=== PATIENT | male | born 1940 | race Caucasian/White ===

== ENCOUNTER 2020-02-26 09:21 | Emergency (ER) | payer MEDICARE, OTHER ==
[~2020-02-26] VITALS: Ht 175.3 cm; Wt 64.7 kg
[~2020-02-26 09:21] MED LIST: ACYC-113 PO; ASPI-650 PO; ERYT1OIN5 EACHEYE; LOSA50TA2 PO; POLY17PO5 PO; TRIF7.5D4 OP
[2020-02-26 09:25] VITALS: BP 184/156
--- NOTE | 2020-02-26 09:55 | NUR ---
EDMD LAW AT BEDSIDE, PT ABRASIVE IN NATURE, RUSHING STAFF YET REFUSING INTERVENTIONS OR QUESTIONING, STATING "I NEED TO LEAVE SOON". POC EXPLAINED BY MD LAW, PT STATING HE DOES NOT WANT FOLLOW UP OR PRESCRIPTION MEDICATIONS. PT CONTINUES TO INTERRUPT MD DURING MD ASSESSMENT AND EDUCATION.
--- NOTE | 2020-02-26 10:23 | NUR ---
late entry for 1023: pt given dc instructions and script. pt refusing to answer RN questions to complete clinical screen. pt refusing repeat bp. per skid machine operator, pt had refused to keep arm still for BP measurement in triage. pt yelling at staff to discharge him because he is in a hurry. pt ambulatory to dc desk with steady gait.
== END 2020-02-26 10:23 | disposition home or self-care (01) ==
LOC: ED 10:13
DX: L30.9 Dermatitis, unspecified (principal)
CPT/HCPCS: 99283

== ENCOUNTER 2020-03-09 21:41 | Emergency (ER) | payer MEDICARE ==
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
== END 2020-03-09 21:54 | disposition left against medical advice (07) ==
LOC: ED 21:45
DX: M54.9 Dorsalgia, unspecified (principal); Z53.21 Procedure and treatment not carried out due to patient leaving prior to being seen by health care provider

== ENCOUNTER 2020-03-12 15:45 | Emergency (ER) | payer MEDICARE ==
[~2020-03-12] VITALS: Ht 175.3 cm; Wt 90.9 kg
[2020-03-12 16:58] LABS: BASOPHILS % (AUTO) 0 % (0-1); EOSINOPHILS % (AUTO) 1 % (1-7); LYMPHOCYTES % (AUTO) 8 % (22-44); MEAN CORPUSCULAR HEMOGLOBIN 33.2 pg (27.5-34.5); MEAN CORPUSCULAR HGB CONC 33.6 g/dL (33.2-36.2); MEAN PLATELET VOLUME 8.1 fL (7.4-10.4); MONOCYTES % (AUTO) 10 % (2-9); NEUTROPHILS % (AUTO) 80 % (42-75); PLATELET COUNT 223 x10^3/uL (130-400); RED BLOOD COUNT 4.41 x10^6/uL (4.38-5.82)
[2020-03-12 16:59] LABS: MD NO
[2020-03-12 17:07] LABS: ALANINE AMINOTRANSFERASE 41 U/L (12-78); ALBUMIN 3.1 g/dL (3.4-5.0); ANION GAP 7 mmol/L (5-15); CALCIUM 8.9 mg/dL (8.5-10.1); CHLORIDE 102 mmol/L (98-107); CREATININE 1.01 mg/dL (0.7-1.3)
[2020-03-12 17:10] LABS: ALKALINE PHOSPHATASE 91 U/L (45-117); BILIRUBIN,TOTAL 1.3 mg/dL (0.2-1.0); TOTAL PROTEIN 6.8 g/dL (6.4-8.2)
[2020-03-12] MEDS ORDERED: IBUPROFEN 200 MG TABLET PO ONE (17:30)
[2020-03-12] MEDS ORDERED: IBUPROFEN 600 MG TABLET ONE (18:03)
--- NOTE | 2020-03-12 18:04 | NUR ---
ATTEMPTED TO GET PT TO WHEELCHAIR TO OFFER PT SHOWER PRIOR TO DC. TECH UNABLE TO GET PT INTO CHAIR. PT NOW C/O BACK PAIN. SCOTTY UPDATED. ORDERS RECIEVED FOR XR. Addendum: 03/12/20 at 1818 by AMCCHOLOB PT STATES HE CANNOT WALK, SCOTTY UPDATED. PT TELLS THIS RN HE WAS WALKING AROUND EARLIER TODAY, BUT CANNOT WALK NOW
--- NOTE | 2020-03-12 18:31 | NUR ---
PLAN FOR DX BACK AND UA AND PROCEED WITH DC IF NORMAL. PT HERE THREE DAYS AGO REQUIRING SECURITY TO ESCORT PT OUT PER ERMD.
--- NOTE | 2020-03-12 18:50 | NUR ---
assumed care of pt. report from Cally GLYNN. pt here for non-specific c/o via [facility]. pt is resting in position of comfort and has been uncooperative with assesment and questioning. awaiting test results
[2020-03-12 19:04] LABS: MICROSCOPIC INDICATED
--- NOTE | 2020-03-12 19:05 | NUR ---
attempted to enter room to D/c pt. pt is uncooperative with D/C. pt will not get dressed or get out of bed. pt is in no resp. distress. pt MANDY. security notified
[2020-03-12 19:15] VITALS: BP 149/60
== END 2020-03-12 19:20 | disposition home or self-care (01) ==
LOC: ED 16:10
DX: G89.29 Other chronic pain (principal); M19.072 Primary osteoarthritis, left ankle and foot; M19.042 Primary osteoarthritis, left hand; Z72.9 Problem related to lifestyle, unspecified; W18.39XA Other fall on same level, initial encounter; Y93.89 Activity, other specified; Y92.488 Other paved roadways as the place of occurrence of the external cause; Y99.8 Other external cause status
CPT/HCPCS: 36415; 72110; 80053; 81001; 85025; 87086; 99284

== ENCOUNTER 2020-03-16 03:52 | Emergency (ER) | payer MEDICARE ==
[~2020-03-16] VITALS: Ht 175.3 cm; Wt 92.5 kg
--- NOTE | 2020-03-16 04:10 | NUR ---
warm blanket provided, patient start snoring during triage.
--- NOTE | 2020-03-16 04:10 | NUR ---
BROUGHT IN BY THADDEUS PICKED UP NEXT TO MOVIE THEATER @ [facility]. PER REPORT ALTERED MENTAL STATUS. PATIENT A & O X 3 UPON ARRIVAL TO ED. NO TRAUMA. FS- 100
--- NOTE | 2020-03-16 04:42 | NUR ---
PA at bedside.
--- NOTE | 2020-03-16 06:11 | NUR ---
patient discharged with instruction. not willing to cooperate and wanting to stay more time to sleep. security at bedside.
[2020-03-16 06:13] VITALS: BP 163/84
== END 2020-03-16 06:16 | disposition home or self-care (01) ==
LOC: ED 05:00
DX: I48.0 Paroxysmal atrial fibrillation (principal); R41.82 Altered mental status, unspecified; I45.10 Unspecified right bundle-branch block; I25.10 Atherosclerotic heart disease of native coronary artery without angina pectoris; I10 Essential (primary) hypertension
CPT/HCPCS: 93005; 99283

== ENCOUNTER 2020-03-23 15:36 | Emergency (ER) | payer MEDICARE ==
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
--- NOTE | 2020-03-23 15:55 | NUR ---
SW paged per edmd verbal order at this time.
--- NOTE | 2020-03-23 15:59 | NUR ---
SW at bedside at this time.
[2020-03-23 16:35] VITALS: BP 152/89
== END 2020-03-23 16:38 | disposition home or self-care (01) ==
LOC: ED 16:33
DX: F29 Unspecified psychosis not due to a substance or known physiological condition (principal); Z72.9 Problem related to lifestyle, unspecified; R00.0 Tachycardia, unspecified; I10 Essential (primary) hypertension; I25.10 Atherosclerotic heart disease of native coronary artery without angina pectoris; I48.91 Unspecified atrial fibrillation
CPT/HCPCS: 93005; 99285

== ENCOUNTER 2020-03-24 14:01 | Observation (INO) | payer MEDICARE ==
[~2020-03-24] VITALS: Ht 177.8 cm; Wt 89.7 kg
--- NOTE | 2020-03-24 14:32 | NUR ---
INITIAL PT CONTACT. PT IN ED FOR CHRONIC SCIATICA PAIN. PT REQUESTS MEDICATION FOR THIS PAIN. PT SEEN HERE LAST NIGHT FOR SAME. D/C TO [facility]EN INTERMEDIATE. RETURNED TO ED FOR PERSISTENT SCIATICA PAIN. PT HARD OF HEARING BUT COOPERATIVE. PT STATES "I WANT A CANE OR A WALKER". PT UPRIGHT ON GURNEY POSITIONED FOR COMFORT, CALL LIGHT WITHIN REACH. FALL PRECAUTIONS IN PLACE.
[2020-03-24] MEDS ORDERED: KETOROLAC 60 MG/2 ML ONE (14:36)
[2020-03-24] MEDS ORDERED: KETOROLAC 30 MG/1 ML ONE (14:42)
[2020-03-24] MEDS ORDERED: KETOROLAC 30 MG/1 ML IM ONE (15:00)
--- NOTE | 2020-03-24 15:03 | NUR ---
PT. WAS WHEELED BACK FROM TRIAGE BY TECH, WHEN ARRIVED TO ROOM PT. WAS ABLE TO STAND AND WALK TO [facility].
--- NOTE | 2020-03-24 15:45 | NUR ---
AMBULATION WITH PT. PT SAT UP IN BED WITH ONE PERSON ASSIST. PIVOTED WITH CANE WITH ONE PERSON ASSIST, HOWEVER WAS UNSTEADY. FROM SEATED TO STANDING POSITION, ONE PERSON ASSIST, UNSTEADY. AMBULATION ONE PERSON ASSIST, UNSTEADY. IT APPEARS PT WOULD BENEFIT FROM DAILY PHYSICAL THERAPY TO STRENGTHEN BODY MECHANICS AND ABILITY TO BE MORE INDEPENDENT WITH ADLS. ALSO PT REPORTS SCIATICA PAIN THAT HAS GOTTEN WORSE OVER THE PAST 3-4 DAYS. PT HAS HX OF CORTISONE INJECTIONS, AND REPORTS SOME PAIN RELIEF FROM THIS. UNABLE TO PROVIDE THIS MEDICATION IN ED. PT IS AGREEABLE TO HALFWAY. PT STATED "I WANT TO GET STRONGER". PT SITTING UPRIGHT ON CHAIR, STATES "I WANT TO SIT HERE, ITS MORE COMFORTABLE". FALL PRECAUTIONS IN PLACE.
--- NOTE | 2020-03-24 16:01 | NUR ---
PT REQ ASSISTANCE BACK TO [facility], COMFORT MEASURES PROVIDED, CALL LIGHT WITHIN REACH, AWAITING SW TO ASSIST WITH DC.
--- NOTE | 2020-03-24 17:00 | NUR ---
PT LAYING ON GURNEY WITH EYES CLOSED, MOSTLY SLEEPING, [place] [facility] [place] BUT RESPONDS APPROP TO STAFF, NAD AT REST, NO NEEDS AT THIS TIME, CALL LIGHT WITHIN REACH, SW WORKING ON TRANSFER TO SNF.
--- NOTE | 2020-03-24 18:02 | NUR ---
PT CONTINUES LAYING ON GURNEY MOSTLY SLEEPING, NAD WITH EQUAL CHEST RISE/FALL, NO NEEDS AT THIS TIME, CALL LIGHT WITHIN REACH, SW CONTINUES TO WORK ON TRANSFER TO SNF.
--- NOTE | 2020-03-24 19:04 | NUR ---
RECEIVED BS REPORT FROM GRETTA JENNINGS TO ASSUME CARE OF PT. AT THIS TIME. PT. RESTING ON GURNEY LEFT LATERAL POSITION. AWAITING BED PLACEMENT UPSTAIRS.
--- NOTE | 2020-03-24 19:17 | NUR ---
LARGE AMOUNT OF DRIED/CAKED ON STOOL CLEANED FROM PT. BUTTOCK/GROIN. PT. GROIN IS MACERATED WITH GREEN/YELLOW DRAINAGE; [facility] IN TO EVAL PT. FOR ADMISSION AND IS AWARE OF SKIN ISSUES.
--- NOTE | 2020-03-24 19:33 | NUR ---
BS REPORT TO GRETTA BROOKE; THIS RN PRECEPTING.
--- NOTE | 2020-03-24 19:36 | NUR ---
PT. HAS 1 PAIR OF UNDERWEAR, 1 PAIR BLACK PANTS, 1 BLACK ZIP UP SWEATER, 1 BLUE LONG SLEEVE SHIRT, 1 PAIR OF SANDLES, 1 CANE. ALL BELONGINGS PLACED INTO 1 BAG.
[2020-03-24] MEDS ORDERED: ONDANSETRON 2MG/ML, 2ML IVPush PRN (20:00)
[2020-03-24] MEDS ORDERED: OXYcodone/APAP 5/325MG TABLET PO PRN (20:00)
[2020-03-24] MEDS ORDERED: LACTATED RINGERS 1,000 ML IV SCH (20:00)
[2020-03-24] MEDS ORDERED: METHOCARBAMOL 500 MG TABLET PO PRN (20:00)
[2020-03-24] MEDS: ENOXAPARIN 40 MG/0.4 ML SQ SCH (20:00)
[2020-03-24] MEDS ORDERED: ENALAPRILAT 1.25 MG/ML, 2ML IVPush PRN (20:00)
[2020-03-24] MEDS ORDERED: DOCUSATE 100 MG CAPSULE PO PRN (20:00)
[2020-03-24] MEDS ORDERED: morphine SULFATE 10 MG/ML, 1ML IVPush PRN (20:00)
[2020-03-24] MEDS ORDERED: ACETAMINOPHEN 325 MG TABLET PO PRN (20:00)
[2020-03-24 20:58] VITALS: BP 161/76
[2020-03-24] MEDS ORDERED: TEMAZEPAM 15 MG CAPSULE PO PRN (21:00)
[2020-03-24] MEDS ORDERED: KETOCONAZOLE CRM 2%, 15GM TP SCH (21:00)
[2020-03-24] MEDS: KETOCONAZOLE 2%, 30GM TP SCH ×2 (21:00→22:18)
[2020-03-24] MEDS: ERYTHROMYCIN OPHTH 0.5%, 1GM EACHEYE SCH (22:17)
[2020-03-24] MEDS: FAMOTIDINE 20 MG TABLET PO SCH (22:18)
[2020-03-25 00:40] VITALS: BP 149/76
[2020-03-25] MEDS: ERYTHROMYCIN OPHTH 0.5%, 1GM EACHEYE SCH ×5 (04:53→20:52)
[2020-03-25 05:18] LABS: ANION GAP 5 mmol/L (5-15); CALCIUM 8.5 mg/dL (8.5-10.1); CHLORIDE 107 mmol/L (98-107)
[2020-03-25 05:25] LABS: BASOPHILS % (AUTO) 1 % (0-1); EOSINOPHILS % (AUTO) 1 % (1-7); LYMPHOCYTES % (AUTO) 26 % (22-44); MEAN CORPUSCULAR HEMOGLOBIN 32.6 pg (27.5-34.5); MEAN CORPUSCULAR HGB CONC 33.2 g/dL (33.2-36.2); MEAN PLATELET VOLUME 9.6 fL (7.4-10.4); MONOCYTES % (AUTO) 13 % (2-9); NEUTROPHILS % (AUTO) 59 % (42-75); PLATELET COUNT 111 x10^3/uL (130-400); RED BLOOD COUNT 4.52 x10^6/uL (4.38-5.82); RED CELL DISTRIBUTION WIDTH 16.1 % (9.4-14.8)
[2020-03-25 05:30] LABS: CREATININE 1.01 mg/dL (0.7-1.3)
[2020-03-25 05:36] LABS: MD NO
[2020-03-25 07:35] VITALS: BP 137/70
[2020-03-25] MEDS: FAMOTIDINE 20 MG TABLET PO SCH ×2 (08:10→20:52)
[2020-03-25] MEDS: TERBINAFINE 250MG TABLET PO SCH (08:10)
[2020-03-25] MEDS: KETOCONAZOLE 2%, 30GM TP SCH ×3 (08:11→20:58)
[2020-03-25 09:23] LABS: MICROSCOPIC INDICATED
[2020-03-25 12:49] VITALS: BP 152/72
[2020-03-25] MEDS: MINERA CRM, 60GM TP SCH ×3 (16:00→20:58)
[2020-03-25 19:18] VITALS: BP 159/65
[2020-03-25] MEDS: ENOXAPARIN 40 MG/0.4 ML SQ SCH (20:51)
[2020-03-25] MEDS: TRIAMCINOLONE CRM 0.1%, 15GM TP SCH (21:00)
[2020-03-25 22:13] VITALS: BP 174/80
[2020-03-25 23:50] VITALS: BP 136/72
[2020-03-26 00:34] VITALS: BP 125/71
[2020-03-26] MEDS: ERYTHROMYCIN OPHTH 0.5%, 1GM EACHEYE SCH ×2 (05:55→09:44)
[2020-03-26 07:23] VITALS: BP 164/79
[2020-03-26] MEDS ORDERED: LOSARTAN 50MG TABLET PO SCH (09:00)
[2020-03-26] MEDS: MINERA CRM, 60GM TP SCH (09:43)
[2020-03-26] MEDS: KETOCONAZOLE 2%, 30GM TP SCH (09:43)
[2020-03-26] MEDS: FAMOTIDINE 20 MG TABLET PO SCH (09:43)
[2020-03-26] MEDS: TERBINAFINE 250MG TABLET PO SCH (09:43)
[2020-03-26] MEDS: TRIAMCINOLONE CRM 0.1%, 15GM TP SCH (09:44)
[2020-03-26] MEDS ORDERED: TRIA15CR61 TP (09:50)
[2020-03-26] MEDS ORDERED: TERB250T14 PO (09:50)
[2020-03-26] MEDS ORDERED: KETO15CR17 TP (09:50)
[2020-03-26] MEDS ORDERED: ACET325T26 PO (09:50)
[2020-03-26 12:44] VITALS: BP 146/73
[2020-03-27] MEDS ORDERED: ASPIRIN 325 MG TABLET EC PO SCH (06:00)
== END 2020-03-26 13:25 ==
LOC: ED 14:32 → INTOOBSV 19:57 → EDIP 19:57 → 3N 20:40
PROVIDERS: ADMIT Internal Medicine; ATTEND Internal Medicine
DX: G89.29 Other chronic pain (principal); M54.5 Low back pain; R62.7 Adult failure to thrive; I25.10 Atherosclerotic heart disease of native coronary artery without angina pectoris; I48.91 Unspecified atrial fibrillation; I10 Essential (primary) hypertension; E11.9 Type 2 diabetes mellitus without complications; B35.6 Tinea cruris; M54.9 Dorsalgia, unspecified; H54.61 Unqualified visual loss, right eye, normal vision left eye; H54.62 Unqualified visual loss, left eye, normal vision right eye; B35.1 Tinea unguium; F17.200 Nicotine dependence, unspecified, uncomplicated; Z79.899 Other long term (current) drug therapy; Z95.5 Presence of coronary angioplasty implant and graft
CPT/HCPCS: 36415; 71045; 80048; 81001; 84443; 85025; 87086; 96360; 96361; 96372; 97163; 97166; 99284; G0378; J1650; J1885; J7120